=== PATIENT | female | born 1975 | race Caucasian/White ===

== ENCOUNTER → 2019-04-11 | Outpatient (CLI) | payer OTHER ==
[~2019-04-11] MED LIST: TORADOL10 MG PO; VICODIN 5/500 505 MG PO
== END | disposition home or self-care (01) ==
LOC: RAD 11:42
DX: M99.03 Segmental and somatic dysfunction of lumbar region (principal); M96.0 Pseudarthrosis after fusion or arthrodesis

== ENCOUNTER → 2022-12-18 | Outpatient (CLI) | payer BC, OTHER | END | disposition home or self-care (01) | LOC: RAD 11:22 → LAB 11:22 | PROVIDERS: ATTEND Family Medicine | DX: I25.2 Old myocardial infarction (principal); R53.83 Other fatigue ==

== ENCOUNTER 2023-12-03 09:53 | Emergency (ER) | payer BC, OTHER ==
[~2023-12-03] VITALS: Ht 170.1 cm; Wt 95.3 kg
[2023-12-03] MEDS ORDERED: Labetalol Hydrochloride 20 MG/4 ML SYR IV ONE (10:35)
[2023-12-03] MEDS ORDERED: SODIUM CHLORIDE 0.9% 1,000 ML IV ONE (10:35)
[2023-12-03 10:44] LABS: BASO % 0.3 % (0.0-1.0); EOS # 0.2 10*3/uL (0.0-0.4); EOS % 1.2 % (1.0-4.0); HEMATOCRIT 45.3 % (37.0-47.0); LYMPH # 2.5 10*3/uL (1.3-4.4); LYMPH % 15.9 % (27.0-41.0); MEAN CELL VOLUME 90.6 fl (81.0-99.0); MEAN CORPUSCULAR HGB 29.4 pg (27.0-31.0); MEAN CORPUSCULAR HGB CONC 32.5 g/dl (33.0-37.0); MONO # 0.7 10*3/uL (0.1-1.0); MONO % 4.6 % (3.0-9.0); NEUT # 12.1 10*3/uL (2.3-7.9); NEUT % 77.6 % (47.0-73.0); PLATELET COUNT AUTOMATED 252 10*3/uL (130-400); RED CELL DISTRI WIDTH 13.4 % (0-14.5); WHITE BLOOD COUNT 15.6 10*3/uL (4.8-10.8)
[2023-12-03 11:04] LABS: ALKALINE PHOSPHATASE 96 U/L (46-116); BUN 11 mg/dl (9-23); CHLORIDE 104 mmol/L (98-107); POTASSIUM 3.7 mmol/L (3.4-5.1); SGPT/ALT 31 U/L (5-49); TOTAL PROTEIN 8.2 gm/dL (6.0-8.0)
[2023-12-03] MEDS ORDERED: amLODIPine besylate 10 MG TAB PO ONE (11:40)
[2023-12-03] MEDS ORDERED: AVPAK AZITHROM250 MG PO (11:57)
[2023-12-03] MEDS ORDERED: NORVASC5 MG PO (11:57)
== END 2023-12-03 13:51 | disposition home or self-care (01) ==
LOC: ED 09:53
PROVIDERS: Emergency Medicine
DX: I16.0 Hypertensive urgency (principal); J40 Bronchitis, not specified as acute or chronic; H92.02 Otalgia, left ear; Z88.8 Allergy status to other drugs, medicaments and biological substances; Z88.6 Allergy status to analgesic agent; Z88.5 Allergy status to narcotic agent; Z98.890 Other specified postprocedural states